=== PATIENT | female | born 1975 | race Native Hawaiian/Other Pacific Islander ===

== ENCOUNTER 2024-08-13 12:12 | Emergency (ER) | payer SELFPAY ==
[~2024-08-13] VITALS: Ht 154.9 cm; Wt 73.4 kg
[2024-08-13] MEDS ORDERED: AMOX875T2 PO (15:14)
[2024-08-13 15:39] VITALS: BP 135/65; TEMP 98; O2SAT 98
== END 2024-08-13 15:41 | disposition home or self-care (01) ==
LOC: M ED 12:12
DX: J02.9 Acute pharyngitis, unspecified (principal); J01.90 Acute sinusitis, unspecified; B34.1 Enterovirus infection, unspecified; J45.909 Unspecified asthma, uncomplicated; Z79.2 Long term (current) use of antibiotics

== ENCOUNTER → 2025-03-11 | Outpatient (CLI) | payer BC, OTHER ==
[~2025-03-11] MED LIST: AMOX875T2 PO
[2025-03-11 13:22] LABS: BASO # 0.0 10^3/uL (0.0-0.2); BASO % 0.4 % (0.0-1.0); EOS # 0.2 10^3/uL (0.0-0.5); EOS % 2.9 % (0.0-3.0); LYMPH # 3.2 10^3/uL (1.5-5.0); LYMPH % 46.4 % (24.0-44.0); MONO # 0.5 10^3/uL (0.0-0.8); MONO % 6.5 % (2.0-8.0); NEUTROPHILS # 3.0 10^3/uL (1.5-8.5); NEUTROPHILS % 43.7 % (36.0-66.0); PLATELET COUNT, AUTOMATED 271 10^3/uL (150-450)
[2025-03-11 13:38] LABS: ALT/SGPT 54 U/L (7.0-40); AST/SGOT 35 U/L (<34); CALCIUM LEVEL 9.4 MG/DL (8.5-10.1); CARBON DIOXIDE LEVEL 27 MMOL/L (20-31); CHLORIDE LEVEL 105 MMOL/L (98-107); CHOLESTEROL LEVEL 202 MG/DL (<200); CHOLESTEROL RISK RATIO 4.66 (<5); CREATININE FOR GFR 0.69 MG/DL (0.55-1.30); GLOMERULAR FILTRATION RATE > 90.0 (>58); LDL CHOLESTEROL 140.7 MG/DL (<100); NON-HDL-C 158.7 MG/DL; POTASSIUM SERUM 3.8 MMOL/L (3.5-5.1); SODIUM LEVEL 143 MMOL/L (136-145); TRIGLYCERIDES LEVEL 90 MG/DL (<150)
[2025-03-11 13:42] LABS: ESTIMATED AVERAGE GLUCOSE 260.0 MG/DL (60-110)
== END ==
LOC: M WUC 10:06
PROVIDERS: ATTEND Student in an Organized Health Care Education/Training Program
DX: Z00.00 Encounter for general adult medical examination without abnormal findings (principal); M25.552 Pain in left hip